=== PATIENT | male | born 1980 | race Caucasian/White ===

== ENCOUNTER → 2019-01-11 | Outpatient (CLI) | payer BC ==
--- NOTE | 2019-01-11 09:50 | Diagnostic Imaging Report ---
PROCEDURE: MRI right joint lower extremity without contrast. TECHNIQUE: Multiplanar, multisequence non contrast-enhanced MRI of the right lower extremity was accomplished. INDICATION: Right knee injury. COMPARISON: No prior studies are available for comparison. FINDINGS: There is a large knee joint effusion. There is a moderate size region of marrow edema involving the proximal tibia on the lateral side posteriorly. There appears to be curvilinear low intensity line at this location of the posterior tibia consistent with a fracture line. No other marrow signal abnormalities are seen. The PCL is intact. The ACL is nonvisualized and torn. The medial and lateral collateral ligament complexes are intact. The medial meniscus is intact. There is a tear involving the posterior horn of the lateral meniscus. No displaced meniscal fragment is seen. The extensor mechanism is unremarkable. Articular cartilage is intact. No osteochondral defect is seen. IMPRESSION: 1. Large joint effusion. 2. Acute appearing fracture of the proximal tibia lateral side posteriorly. 3. ACL tear. 4. Posterior horn lateral meniscus tear. Dictated by: Dictated on workstation # [id number]
== END ==
LOC: RAD 07:52
PROVIDERS: ATTEND Nurse Practitioner
DX: S82.191A Other fracture of upper end of right tibia, initial encounter for closed fracture (principal); S83.511A Sprain of anterior cruciate ligament of right knee, initial encounter; S83.281A Other tear of lateral meniscus, current injury, right knee, initial encounter
CPT/HCPCS: 73721